=== PATIENT | female | born 1965 | race Caucasian/White ===

== ENCOUNTER 2016-12-28 07:33 | Day surgery (SDC) | payer OTHER ==
[2016-12-24 15:29] VITALS: BMI 30.9
[~2016-12-28 07:33] MED LIST: LACTATED RINGERS 1,000 ML IV SCH
[2016-12-28 07:50] VITALS: TEMP 97.3
[2016-12-28] MEDS ORDERED: LIDOCAINE 1% 20 ML VIAL (10MG/ML) FOR IV START INTRADERMA ONE (08:00)
[2016-12-28] MEDS ORDERED: MIDAZOLAM 2 MG/2 ML VIAL ONE (08:44)
[2016-12-28] MEDS ORDERED: PROPOFOL 10 MG/ML 20 ML VIAL IV ONE (08:44)
[2016-12-28] MEDS ORDERED: fentaNYL (PF) 50 MCG/ML 2 ML AMP ONE (08:44)
--- NOTE | 2016-12-28 08:52 | P.GSHP ---
History of Present Illness H&P Date: 12/28/16 Chief Complaint: Colon cancer screening Patient here today for colonoscopy. She has not had one previously. No family history of colon cancer. No bowel related complaints. Past Medical History Past Medical History: GERD/Reflux, Hypertension Additional Past Medical History / Comment(s): anemia History of Any Multi-Drug Resistant Organisms: None Reported Past Surgical History: Hysterectomy Additional Past Surgical History / Comment(s): duodinal switch for wt loss, lasik eye surgery Past Anesthesia/Blood Transfusion Reactions: Postoperative Nausea & Vomiting ( PONV) Past Psychological History: No Psychological Hx Reported Smoking Status: Never smoker Past Alcohol Use History: Occasional Past Drug Use History: None Reported - Past Family History Mother Family Medical History: No Reported History Medications and Allergies Home Medications Medication Instructions Recorded Confirmed Type Candesartan/Hydrochlorothiazid 1 each PO DAILY 12/24/16 12/28/16 History [Candesartan-Hctz 16-12.5 mg Tb] Esomeprazole Magnesium 20 mg PO QAM 12/24/16 12/28/16 History Potassium Chloride 8 meq PO TID 12/24/16 12/28/16 History Allergies Allergy/AdvReac Type Severity Reaction Status Date / Time amoxicillin [From Augmentin] Allergy throat Verified 12/28/16 07:40 swelling banana Allergy itchy Verified 12/28/16 07:40 throat clavulanic acid Allergy throat Verified 12/28/16 07:40 [From Augmentin] swelling melon Allergy itchy Verified 12/28/16 07:40 throat Penicillins Allergy throat Verified 12/28/16 07:40 swelling, SOB, and rash walnut Allergy itchy Verified 12/28/16 07:40 throat Surgical - Exam Vital Signs Temp Pulse Resp BP Pulse Ox 97.3 F L 60 18 111/73 97 12/28/16 07:46 12/28/16 07:46 12/28/16 07:46 12/28/16 07:46 12/28/16 07:46 Physical exam: General: Well-developed, well-nourished HEENT: Normocephalic, sclerae nonicteric Abdomen: Nontender, nondistended Extremities: No edema Neuro: Alert and oriented Assessment and Plan (1) Colon cancer screening Narrative/Plan: Will proceed with colonoscopy at this time. Status: Acute
--- NOTE | 2016-12-28 09:06 | P.PCN ---
Date of Procedure: 12/28/16 Procedure(s) Performed: PREOPERATIVE DIAGNOSIS: Colon cancer screening POSTOPERATIVE DIAGNOSIS: Diverticulosis, small rectal polyp PROCEDURE: Colonoscopy with biopsy ANESTHESIA: MAC SURGEON: Laci Resendez M.D. SPECIMENS: Rectal polyp ENDOSCOPIC PROCEDURE: The patient was placed on the endoscopy table in the left decubitus position. The Olympus colonoscope was inserted into the anus and passed under direct visualization to the base of the cecum. The appendiceal orifice was visualized. From that point the scope was slowly withdrawn inspecting all surfaces carefully. There were no neoplastic inflammatory or polypoid lesions throughout the cecum, ascending, transverse, descending, and sigmoid colon. In the rectum there was a small polyp that was removed using the cold biopsy forceps. There was mild diverticulosis present in the left colon. Digital rectal examination was normal. The patient was taken to the recovery room in stable condition per anesthesia guidelines. RECOMMENDATIONS: Await biopsy results to determine the timing of the next colonoscopy.
[2016-12-28 09:08] VITALS: RESP 16
[2016-12-28 09:38] VITALS: BP 99/65; PULSE 58
== END 2016-12-28 09:48 | disposition home or self-care (01) ==
LOC: ORWHC2ENDO 07:33
PROVIDERS: ATTEND Surgery
DX: Z12.11 Encounter for screening for malignant neoplasm of colon (principal); D12.8 Benign neoplasm of rectum; K57.30 Diverticulosis of large intestine without perforation or abscess without bleeding; I10 Essential (primary) hypertension; K21.9 Gastro-esophageal reflux disease without esophagitis; Z79.899 Other long term (current) drug therapy; Z91.018 Allergy to other foods; Z88.0 Allergy status to penicillin
CPT/HCPCS: 88305; 45380; J2250; J3010; J2704

== ENCOUNTER 2017-03-07 14:32 | Observation (INO) | payer OTHER ==
[2017-03-07] MEDS ORDERED: ASPIRIN 81 MG CHEW PO STA (15:39)
[2017-03-07] MEDS ORDERED: NITROGLYCERIN OINT 1 INCH/GM PACKET TOPICAL STA (15:39)
--- NOTE | 2017-03-07 15:42 | ED ---
General Adult HPI - General Chief complaint: Chest Pain Stated complaint: Chest Pain Time Seen by Provider: 03/07/17 15:10 Source: patient, RN notes reviewed Mode of arrival: wheelchair Limitations: no limitations - History of Present Illness Initial comments: Patient is a pleasant 52-year-old female presenting to the emergency Department with chest discomfort. Onset was around 11:30 and symptoms lasted a couple hours. Symptoms now resolved. Patient states discomfort did radiate towards his shoulder. was nauseated. Patient has been under increased stress regarding interview. No dyspnea. No diaphoresis. No history of similar symptoms previously. Discomfort felt like tightness. - Related Data Home Medications Medication Instructions Recorded Confirmed Candesartan/Hydrochlorothiazid 1 tab PO QAM 12/24/16 03/07/17 [Candesartan-Hctz 16-12.5 mg Tb] Esomeprazole Magnesium 20 mg PO QAM 12/24/16 03/07/17 Potassium Chloride 8 meq PO TID 12/24/16 03/07/17 Calcium Carbonate [Calcium] 600 mg PO QAM 03/07/17 03/07/17 Multivitamins, Thera [Multivitamin 1 tab PO QAM 03/07/17 03/07/17 (formulary)] Allergies Allergy/AdvReac Type Severity Reaction Status Date / Time amoxicillin [From Augmentin] Allergy throat Verified 03/07/17 15:49 swelling banana Allergy itchy Verified 03/07/17 15:49 throat clavulanic acid Allergy throat Verified 03/07/17 15:49 [From Augmentin] swelling melon Allergy itchy Verified 03/07/17 15:49 throat Penicillins Allergy throat Verified 03/07/17 15:49 swelling, SOB, and rash walnut Allergy itchy Verified 03/07/17 15:49 throat Review of Systems ROS Statement: Those systems with pertinent positive or pertinent negative responses have been documented in the HPI. ROS Other: All systems not noted in ROS Statement are negative. Constitutional: Denies: fever Eyes: Denies: eye pain ENT: Denies: ear pain Respiratory: Denies: cough, dyspnea Cardiovascular: Reports: chest pain Endocrine: Denies: fatigue Gastrointestinal: Reports: nausea. Denies: abdominal pain Genitourinary: Denies: dysuria Musculoskeletal: Denies: back pain Skin: Denies: rash Neurological: Denies: weakness Past Medical History Past Medical History: GERD/Reflux, Hypertension Additional Past Medical History / Comment(s): anemia History of Any Multi-Drug Resistant Organisms: None Reported Past Surgical History: Hysterectomy Additional Past Surgical History / Comment(s): duodinal switch for wt loss, lasik eye surgery Past Anesthesia/Blood Transfusion Reactions: Postoperative Nausea & Vomiting ( PONV) Past Psychological History: No Psychological Hx Reported Smoking Status: Never smoker Past Alcohol Use History: Occasional Past Drug Use History: None Reported - Past Family History Mother Family Medical History: No Reported History General Exam Limitations: no limitations General appearance: alert, in no apparent distress Head exam: Present: atraumatic Eye exam: Present: normal appearance, PERRL ENT exam: Present: normal oropharynx Neck exam: Present: normal inspection Respiratory exam: Present: normal lung sounds bilaterally. Absent: chest wall tenderness Cardiovascular Exam: Present: regular rate, normal rhythm Expanded Peripheral pulses: 2+: Radial (R), Radial (L), Posterior Tibialis (R), Posterior Tibialis (L) GI/Abdominal exam: Present: soft. Absent: tenderness Extremities exam: Present: normal inspection. Absent: pedal edema, calf tenderness Neurological exam: Present: alert Psychiatric exam: Present: normal affect, normal mood Skin exam: Present: normal color Course Vital Signs 03/07/17 03/07/17 14:41 16:41 Temperature 98.5 F 97.2 F L Pulse Rate 68 56 L Respiratory 18 18 Rate Blood Pressure 118/81 126/72 O2 Sat by Pulse 94 L 96 Oximetry EKG Findings - EKG Comments: EKG Findings:: Normal sinus rhythm 61. Normal intervals. Normal axis. Normal QRS. Normal ST-T. Medical Decision Making - Medical Decision Making Patient reevaluated and resting comfortably in bed. Patient and family updated on results and plan. Case was discussed with Dr. Lindsey, who will admit his patient with cardiology consult. - Lab Data Result diagrams: 03/07/17 15:53 03/07/17 15:53 Lab Results 03/07/17 03/07/17 03/07/17 Range/Units 15:53 15:53 15:53 WBC 6.9 (3.8-10.6) k/uL RBC 4.63 (3.80-5.40) m/uL Hgb 12.7 (11.4-16.0) gm/dL Hct 39.0 (34.0-46.0) % MCV 84.2 (80.0-100.0) fL MCH 27.4 (25.0-35.0) pg MCHC 32.5 (31.0-37.0) g/dL RDW 19.2 H (11.5-15.5) % Plt Count 188 (150-450) k/uL Neutrophils % 69 % Lymphocytes % 23 % Monocytes % 5 % Eosinophils % 1 % Basophils % 0 % Neutrophils # 4.8 (1.3-7.7) k/uL Lymphocytes # 1.6 (1.0-4.8) k/uL Monocytes # 0.3 (0-1.0) k/uL Eosinophils # 0.1 (0-0.7) k/uL Basophils # 0.0 (0-0.2) k/uL Hypochromasia Slight Anisocytosis Slight PT (9.0-12.0) sec INR (<1.1) APTT (22.0-30.0) sec Sodium 139 (137-145) mmol/L Potassium 3.0 L* (3.5-5.1) mmol/L Chloride 100 (98-107) mmol/L Carbon Dioxide 29 (22-30) mmol/L Anion Gap 10 mmol/L BUN 14 (7-17) mg/dL Creatinine 0.54 (0.52-1.04) mg/dL Est GFR (MDRD) Af Amer >60 (>60 ml/min/1.73 sqM) Est GFR (MDRD) Non-Af >60 (>60 ml/min/1.73 sqM) Glucose 91 (74-99) mg/dL Calcium 8.6 (8.4-10.2) mg/dL Magnesium 2.1 (1.6-2.3) mg/dL Total Bilirubin 0.6 (0.2-1.3) mg/dL AST 45 H (14-36) U/L ALT 47 (9-52) U/L Alkaline Phosphatase 95 (38-126) U/L Total Creatine Kinase 130 (30-135) U/L CK-MB (CK-2) 1.4 (0.0-2.4) ng/mL CK-MB (CK-2) Rel Index 1.1 Troponin I <0.012 (0.000-0.034) ng/mL Total Protein 7.0 (6.3-8.2) g/dL Albumin 3.8 (3.5-5.0) g/dL 03/07/17 Range/Units 15:53 WBC (3.8-10.6) k/uL RBC (3.80-5.40) m/uL Hgb (11.4-16.0) gm/dL Hct (34.0-46.0) % MCV (80.0-100.0) fL MCH (25.0-35.0) pg MCHC (31.0-37.0) g/dL RDW (11.5-15.5) % Plt Count (150-450) k/uL Neutrophils % % Lymphocytes % % Monocytes % % Eosinophils % % Basophils % % Neutrophils # (1.3-7.7) k/uL Lymphocytes # (1.0-4.8) k/uL Monocytes # (0-1.0) k/uL Eosinophils # (0-0.7) k/uL Basophils # (0-0.2) k/uL Hypochromasia Anisocytosis PT 10.5 (9.0-12.0) sec INR 1.0 (<1.1) APTT 23.3 (22.0-30.0) sec Sodium (137-145) mmol/L Potassium (3.5-5.1) mmol/L Chloride (98-107) mmol/L Carbon Dioxide (22-30) mmol/L Anion Gap mmol/L BUN (7-17) mg/dL Creatinine (0.52-1.04) mg/dL Est GFR (MDRD) Af Amer (>60 ml/min/1.73 sqM) Est GFR (MDRD) Non-Af (>60 ml/min/1.73 sqM) Glucose (74-99) mg/dL Calcium (8.4-10.2) mg/dL Magnesium (1.6-2.3) mg/dL Total Bilirubin (0.2-1.3) mg/dL AST (14-36) U/L ALT (9-52) U/L Alkaline Phosphatase (38-126) U/L Total Creatine Kinase (30-135) U/L CK-MB (CK-2) (0.0-2.4) ng/mL CK-MB (CK-2) Rel Index Troponin I (0.000-0.034) ng/mL Total Protein (6.3-8.2) g/dL Albumin (3.5-5.0) g/dL - Radiology Data Radiology results: image reviewed (Chest x-ray shows no acute process.) Critical Care Time Critical Care Time: Yes Total Critical Care Time: 32 Disposition Clinical Impression: Unstable angina pectoris Disposition: ADMITTED IP TO THIS HOSP Referrals: Marcus Lindsey MD [Primary Care Provider] - 1-2 days Decision Time: 17:47
[2017-03-07 16:06] LABS: Anisocytosis Slight; Basophils % (A) 0 %; CH 26.9; CHCM 31.9; Eosinophils # (A) 0.1 k/uL (0-0.7); Eosinophils % (A) 1 %; HDW 2.73; HGB 12.7 gm/dL (11.4-16.0); Hypochromasia Slight; Luc # (Auto) 0.11; Luc % (Auto) 2; Lymphocytes # (A) 1.6 k/uL (1.0-4.8); Lymphocytes % (A) 23 %; MCH 27.4 pg (25.0-35.0); MCHC 32.5 g/dL (31.0-37.0); MCV 84.2 fL (80.0-100.0); Mean Platelet Volume 7.7; Monocytes # (A) 0.3 k/uL (0-1.0); Monocytes % (A) 5 %; Neutrophils # (A) 4.8 k/uL (1.3-7.7); Neutrophils % (A) 69 %; RBC 4.63 m/uL (3.80-5.40); RDW 19.2 % (11.5-15.5); WBC 6.9 k/uL (3.8-10.6)
[2017-03-07 16:14] LABS: Partial Thromboplastin Time 23.3 sec (22.0-30.0); Prothrombin Time 10.5 sec (9.0-12.0)
[2017-03-07 16:21] LABS: ALT 47 U/L (9-52); AST 45 U/L (14-36); Alkaline Phosphatase 95 U/L (38-126); Anion Gap 10 mmol/L; Blood Urea Nitrogen 14 mg/dL (7-17); Calcium 8.6 mg/dL (8.4-10.2); Carbon Dioxide 29 mmol/L (22-30); Chloride 100 mmol/L (98-107); Glucose 91 mg/dL (74-99); Magnesium 2.1 mg/dL (1.6-2.3); Non-African American GFR(MDRD) >60 (>60 ml/min/1.73 sqM); Sodium 139 mmol/L (137-145); Total Bilirubin 0.6 mg/dL (0.2-1.3)
[2017-03-07 16:25] LABS: Creatine Kinase 130 U/L (30-135)
[2017-03-07] MEDS ORDERED: POTASSIUM CHLORIDE ER 20 MEQ TAB.ER PO STA (16:28)
[2017-03-07 16:36] LABS: Creatine Kinase MB 1.4 ng/mL (0.0-2.4); Troponin I <0.012 ng/mL (0.000-0.034)
--- NOTE | 2017-03-07 16:45 | XR ---
EXAMINATION TYPE: XR chest 2V DATE OF EXAM: 03/07/2017 COMPARISON: None HISTORY: 52-year-old female with chest pain TECHNIQUE: PA and lateral views FINDINGS: The cardiomediastinal silhouette, aorta, and pulmonary vasculature are within normal limits. Mild dif fuse interstitial prominence has a chronic appearance. There is some peribronchial cuffing which coul d represent chronic bronchitis/asthma. No consolidation or pleural effusion. Surgical clips at the GE junction and upper abdomen. A 6 mm calcific focus at the left greater trochanter can be seen in the setting of calcific tendinitis. Clinically correlate. IMPRESSION: Chronic-appearing changes, possible chronic bronchitis/asthma. No acute process seen.
[2017-03-07] MEDS ORDERED: NITROGLYCERIN SL TABS 0.4 MG TAB SUBLINGUAL PRN (17:47)
[2017-03-07] MEDS ORDERED: HEPARIN SODIUM,PORCINE 5,000 UNIT/ML 1 ML VIAL IV PRN (17:47)
[2017-03-07] MEDS ORDERED: HEPARIN SODIUM,PORCINE 5,000 UNIT/ML 1 ML VIAL IV ONE (17:47)
[2017-03-07] MEDS ORDERED: HEPARIN SODIUM,PORCINE/D5W PMX 25,000 UNIT in DEXTROSE/WATER 1 500ML.BAG IV SCH (18:00)
[2017-03-07] MEDS: NITROGLYCERIN OINT 1 INCH/GM PACKET TOPICAL SCH (19:42)
[2017-03-07] MEDS ORDERED: ACETAMINOPHEN TAB 325 MG TAB PO PRN (19:45)
[2017-03-07 23:50] LABS: Creatine Kinase 120 U/L (30-135)
[2017-03-08 00:03] LABS: Creatine Kinase MB 1.5 ng/mL (0.0-2.4); Troponin I <0.012 ng/mL (0.000-0.034)
[2017-03-08] MEDS: NITROGLYCERIN OINT 1 INCH/GM PACKET TOPICAL SCH ×3 (00:52→11:40)
[2017-03-08 05:15] LABS: Mean Platelet Volume 7.7
[2017-03-08 05:42] LABS: Creatine Kinase 104 U/L (30-135)
[2017-03-08 05:53] LABS: Creatine Kinase MB 1.2 ng/mL (0.0-2.4); Troponin I <0.012 ng/mL (0.000-0.034)
[2017-03-08 06:38] LABS: Cholesterol 119 mg/dL (<200); HDL Cholesterol 61 mg/dL (40-60); Triglycerides 48 mg/dL (<150)
[2017-03-08] MEDS ORDERED: REGADENOSON 0.4 MG/5 ML SYRINGE IV ONE (07:56)
[2017-03-08] MEDS ORDERED: AMINOPHYLLINE 500 MG/20 ML VIAL IV PRN (07:56)
--- NOTE | 2017-03-08 08:00 | P.HPIM ---
History of Present Illness H&P Date: 03/08/17 Chief Complaint: Chest pain. 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 The patient states significant stress and has had lack of sleep because of the interview process. She states she was admitted through the interview but was having significant chest pain coming home. No nausea but there was some apprehension as far as the intensity of the pain. It was not relieved by any type of other medication or activity. And because of this issue, she was appropriately evaluated in the emergency room for rule out myocardial infarction. She states she has difficulty running given her lack of shoes. We will go ahead and order nuclear medicine stress test today for appropriate evaluation. Review of Systems Constitutional: Denies chills, Denies fever Ears, nose, mouth and throat: Denies headache, Denies sore throat Cardiovascular: Reports chest pain Respiratory: Denies cough Gastrointestinal: Denies abdominal pain, Denies diarrhea, Denies nausea, Denies vomiting Genitourinary: Denies dysuria, Denies hematuria Musculoskeletal: Denies myalgias Integumentary: Denies pruritus, Denies rash Past Medical History Past Medical History: GERD/Reflux, Hypertension Additional Past Medical History / Comment(s): anemia History of Any Multi-Drug Resistant Organisms: None Reported Past Surgical History: Hysterectomy Additional Past Surgical History / Comment(s): duodenall switch for wt loss, lasik eye surgery, dental sx-5 implants, lt elbow sx d/t dislocation, colonoscopy. Past Anesthesia/Blood Transfusion Reactions: Postoperative Nausea & Vomiting ( PONV) Smoking Status: Never smoker - Past Family History Mother Family Medical History: Liver Disease Additional Family Medical History / Comment(s): alcoholic cirrhosis, smoker Father Family Medical History: Coronary Artery Disease (CAD) Additional Family Medical History / Comment(s): stents. Medications and Allergies Home Medications Medication Instructions Recorded Confirmed Type Candesartan/Hydrochlorothiazid 1 tab PO QAM 12/24/16 03/07/17 History [Candesartan-Hctz 16-12.5 mg Tb] Esomeprazole Magnesium 20 mg PO QAM 12/24/16 03/07/17 History Potassium Chloride 8 meq PO TID 12/24/16 03/07/17 History Calcium Carbonate [Calcium] 600 mg PO QAM 03/07/17 03/07/17 History Multivitamins, Thera [Multivitamin 1 tab PO QAM 03/07/17 03/07/17 History (formulary)] Allergies Allergy/AdvReac Type Severity Reaction Status Date / Time amoxicillin [From Augmentin] Allergy throat Verified 03/07/17 21:45 swelling banana Allergy itchy Verified 03/07/17 21:45 throat clavulanic acid Allergy throat Verified 03/07/17 21:45 [From Augmentin] swelling melon Allergy itchy Verified 03/07/17 21:45 throat Penicillins Allergy throat Verified 03/07/17 21:45 swelling, SOB, and rash walnut Allergy itchy Verified 03/07/17 21:45 throat Physical Exam Vitals: Vital Signs Temp Pulse Pulse Resp BP BP Pulse Ox 03/08/17 03:59 56 L 14 03/08/17 03:49 97.6 F 60 14 119/68 94 L 03/08/17 00:00 62 16 03/07/17 23:54 97.2 F L 63 14 110/66 95 03/07/17 19:52 70 16 03/07/17 18:53 97.8 F 51 L 14 118/78 99 03/07/17 16:41 97.2 F L 56 L 18 126/72 96 03/07/17 14:41 98.5 F 68 18 118/81 94 L Intake and Output 03/07/17 03/08/17 03/08/17 22:59 06:59 14:59 Intake Total 560 574.667 Balance 560 574.667 Intake: IV 80 360 0.9 NS @ KVO 80 160 Heparin Sodium,Porcine/ 200 D5w Pmx 25,000 unit In Dextrose/Water 1 500ml. bag @ 11.191 UNITS/KG/HR 20 mls/hr IV .Q24H [facility] Rx #:[id number] Intake, IV Titration 80 114.667 Amount Heparin Sodium,Porcine/ 80 114.667 D5w Pmx 25,000 unit In Dextrose/Water 1 500ml. bag @ 11.191 UNITS/KG/HR 20 mls/hr IV .Q24H [facility] Rx #:[id number] Oral 400 100 Other: Voiding Method Toilet Toilet # Voids 2 2 Weight 89.358 kg - Constitutional General appearance: no acute distress - EENT Eyes: EOMI - Neck Neck: no lymphadenopathy - Respiratory Respiratory: bilateral: CTA - Cardiovascular Rhythm: regular - Gastrointestinal General gastrointestinal: soft - Neurologic Neurologic: CNII-XII intact Results CBC & Chem 7: 03/08/17 04:59 03/07/17 15:53 Labs: Abnormal Lab Results - Last 24 Hours (Table) 03/07/17 03/07/17 03/07/17 Range/Units 15:53 15:53 23:08 RDW 19.2 H (11.5-15.5) % Plt Count (150-450) k/uL APTT 38.0 H (22.0-30.0) sec Potassium 3.0 L* (3.5-5.1) mmol/L AST 45 H (14-36) U/L HDL Cholesterol (40-60) mg/dL 03/08/17 03/08/17 03/08/17 Range/Units 04:59 04:59 04:59 RDW (11.5-15.5) % Plt Count 146 L (150-450) k/uL APTT 70.4 H (22.0-30.0) sec Potassium (3.5-5.1) mmol/L AST (14-36) U/L HDL Cholesterol 61 H (40-60) mg/dL Thrombosis Risk Factor Assmnt - Choose All That Apply Any of the Below Risk Factors Present?: Yes Each Factor Represents 1 point: Age 41-60 years, Obesity (BMI >25) Other Risk Factors: No Other congenital or acquired thrombophilia - If yes, enter type in comment: No Thrombosis Risk Factor Assessment Total Risk Factor Score: 2 Thrombosis Risk Factor Assessment Level: Low Risk Assessment and Plan (1) Unstable angina pectoris Status: Acute Plan: Myocardial infraction has been ruled out. Anginal equivalent pain with significant stress. Order nuclear medicine Lexiscan today. Otherwise, anticipate discharge if stable. Time with Patient: Greater than 30
[2017-03-08 08:03] VITALS: PULSE 62; RESP 16; TEMP 98
[2017-03-08 08:18] LABS: Anion Gap 9 mmol/L; Blood Urea Nitrogen 12 mg/dL (7-17); Calcium 8.6 mg/dL (8.4-10.2); Carbon Dioxide 27 mmol/L (22-30); Chloride 106 mmol/L (98-107); Glucose 92 mg/dL (74-99); Non-African American GFR(MDRD) >60 (>60 ml/min/1.73 sqM); Potassium 3.5 mmol/L (3.5-5.1); Sodium 142 mmol/L (137-145)
[2017-03-08] MEDS ORDERED: Potassium Replacement Protocol 1 EACH MISC MISCELLANE PRN (08:35)
[2017-03-08] MEDS ORDERED: ASPIRIN 325 MG TAB PO SCH (09:00)
--- NOTE | 2017-03-08 10:48 | P.CRDCN ---
History of Present Illness Reason for Consult (text): Chest pain History of present illness: This patient is admitted to the emergency room with chest discomfort. Patient had a job interview yesterday and it was see wasn't a lot of stress did not get any in the sleep night before. This and subsequently started having dull aching chest discomfort in the left anterior part of the chest pain did not radiate to the arm neck or jaw patient was lid with sick to the stomach but no shortness of breath or sweating the chest discomfort persisted initially patient was seen in the medicine urgent clinic EKG was normal and the patient was advised to come to the emergency room here by the time she came here her pain had resolved. She denies any exertional chest discomfort she has a history of borderline hypertension that is no history of diabetes. No family history of coronary artery disease. And patient does not smoke. Past Medical History Past Medical History: GERD/Reflux, Hypertension Additional Past Medical History / Comment(s): anemia History of Any Multi-Drug Resistant Organisms: None Reported Past Surgical History: Hysterectomy Additional Past Surgical History / Comment(s): duodenall switch for wt loss, lasik eye surgery, dental sx-5 implants, lt elbow sx d/t dislocation, colonoscopy. Past Anesthesia/Blood Transfusion Reactions: Postoperative Nausea & Vomiting ( PONV) Smoking Status: Never smoker - Past Family History Mother Family Medical History: Liver Disease Additional Family Medical History / Comment(s): alcoholic cirrhosis, smoker Father Family Medical History: Coronary Artery Disease (CAD) Additional Family Medical History / Comment(s): stents. Medications and Allergies Home Medications Medication Instructions Recorded Confirmed Type Candesartan/Hydrochlorothiazid 1 tab PO QAM 12/24/16 03/07/17 History [Candesartan-Hctz 16-12.5 mg Tb] Esomeprazole Magnesium 20 mg PO QAM 12/24/16 03/07/17 History Potassium Chloride 8 meq PO TID 12/24/16 03/07/17 History Calcium Carbonate [Calcium] 600 mg PO QAM 03/07/17 03/07/17 History Multivitamins, Thera [Multivitamin 1 tab PO QAM 03/07/17 03/07/17 History (formulary)] Allergies Allergy/AdvReac Type Severity Reaction Status Date / Time amoxicillin [From Augmentin] Allergy throat Verified 03/07/17 21:45 swelling banana Allergy itchy Verified 03/07/17 21:45 throat clavulanic acid Allergy throat Verified 03/07/17 21:45 [From Augmentin] swelling melon Allergy itchy Verified 03/07/17 21:45 throat Penicillins Allergy throat Verified 03/07/17 21:45 swelling, SOB, and rash walnut Allergy itchy Verified 03/07/17 21:45 throat Physical Exam Vitals: Vital Signs Temp Pulse Pulse Resp BP BP Pulse Ox 03/08/17 08:00 98.0 F 62 16 100/71 96 03/08/17 03:59 56 L 14 03/08/17 03:49 97.6 F 60 14 119/68 94 L 03/08/17 00:00 62 16 03/07/17 23:54 97.2 F L 63 14 110/66 95 03/07/17 19:52 70 16 03/07/17 18:53 97.8 F 51 L 14 118/78 99 03/07/17 16:41 97.2 F L 56 L 18 126/72 96 03/07/17 14:41 98.5 F 68 18 118/81 94 L Intake and Output 03/07/17 03/08/17 03/08/17 22:59 06:59 14:59 Intake Total 560 574.667 Balance 560 574.667 Intake: IV 80 360 0.9 NS @ KVO 80 160 Heparin Sodium,Porcine/ 200 D5w Pmx 25,000 unit In Dextrose/Water 1 500ml. bag @ 11.191 UNITS/KG/HR 20 mls/hr IV .Q24H [facility] Rx #:[id number] Intake, IV Titration 80 114.667 Amount Heparin Sodium,Porcine/ 80 114.667 D5w Pmx 25,000 unit In Dextrose/Water 1 500ml. bag @ 11.191 UNITS/KG/HR 20 mls/hr IV .Q24H [facility] Rx #:[id number] Oral 400 100 Other: Voiding Method Toilet Toilet Toilet # Voids 2 2 Weight 89.358 kg Patient is comfortable. Vital signs are reviewed. HEENT. Negative. . Supple that is no increase in jugular venous pressure. Both the carotid pulses are felt that is no bruit. Chest. Symmetrical. Heart. First and second heart sounds are normal. Lungs are clinically clear to auscultation and percussion. Abdomen is soft liver and spleen are not enlarged. Extremities peripheral pulses since are 2+. EKG shows normal sinus rhythm without any acute ischemic changes. Cardiac enzymes are normal. Results 03/08/17 04:59 03/08/17 04:59 Cardiac Enzymes 03/07/17 03/07/17 03/07/17 Range/Units 15:53 15:53 23:08 AST 45 H (14-36) U/L CK-MB (CK-2) 1.4 1.5 (0.0-2.4) ng/mL Troponin I <0.012 <0.012 (0.000-0.034) ng/mL 03/08/17 Range/Units 04:59 AST (14-36) U/L CK-MB (CK-2) 1.2 (0.0-2.4) ng/mL Troponin I <0.012 (0.000-0.034) ng/mL Coagulation 03/07/17 03/07/17 03/08/17 Range/Units 15:53 23:08 04:59 PT 10.5 (9.0-12.0) sec APTT 23.3 38.0 H 70.4 H (22.0-30.0) sec Lipids 03/08/17 Range/Units 04:59 Triglycerides 48 (<150) mg/dL Cholesterol 119 (<200) mg/dL HDL Cholesterol 61 H (40-60) mg/dL CBC 03/07/17 03/08/17 Range/Units 15:53 04:59 WBC 6.9 (3.8-10.6) k/uL RBC 4.63 (3.80-5.40) m/uL Hgb 12.7 (11.4-16.0) gm/dL Hct 39.0 (34.0-46.0) % Plt Count 188 146 L (150-450) k/uL Comprehensive Metabolic Panel 03/07/17 03/08/17 Range/Units 15:53 04:59 Sodium 139 142 (137-145) mmol/L Potassium 3.0 L* 3.5 (3.5-5.1) mmol/L Chloride 100 106 (98-107) mmol/L Carbon Dioxide 29 27 (22-30) mmol/L BUN 14 12 (7-17) mg/dL Creatinine 0.54 0.55 (0.52-1.04) mg/dL Glucose 91 92 (74-99) mg/dL Calcium 8.6 8.6 (8.4-10.2) mg/dL AST 45 H (14-36) U/L ALT 47 (9-52) U/L Alkaline Phosphatase 95 (38-126) U/L Total Protein 7.0 (6.3-8.2) g/dL Albumin 3.8 (3.5-5.0) g/dL Current Medications Generic Name Dose Route Start Last Admin Trade Name Freq PRN Reason Stop Dose Admin Acetaminophen 650 mg 03/07/17 19:45 03/07/17 19:57 Tylenol Tab PO 650 mg Q6HR PRN Administration Fever and/ or Pain Aminophylline 100 mg 03/08/17 07:56 Aminophylline IV 03/09/17 07:57 ONCE PRN Patient Response Aspirin 325 mg 03/08/17 09:00 Aspirin PO DAILY [facility] Heparin Sodium/Dextrose 25,000 500 mls @ 20 mls/hr 03/07/17 18:00 03/07/17 23 :52 unit/ IV Solution IV 14.191 units/kg/hr .Q24H [facility] 25.36 mls/hr Protocol Titration 11.191 UNITS/KG/HR Miscellaneous Information 1 each 03/08/17 08:35 Potassium Per Protocol MISCELLANE DAILY PRN Per Protocol Protocol Nitroglycerin 1 inch 03/07/17 19:00 03/08/17 05:53 Nitro-Bid Oint TOPICAL Not Given Q6HR [facility] Nitroglycerin 0.4 mg 03/07/17 17:47 Nitrostat SUBLINGUAL Q5M PRN Chest Pain Intake and Output 03/07/17 03/08/17 03/08/17 22:59 06:59 14:59 Intake Total 560 574.667 Balance 560 574.667 Intake: IV 80 360 0.9 NS @ KVO 80 160 Heparin Sodium,Porcine/ 200 D5w Pmx 25,000 unit In Dextrose/Water 1 500ml. bag @ 11.191 UNITS/KG/HR 20 mls/hr IV .Q24H [facility] Rx #:[id number] Intake, IV Titration 80 114.667 Amount Heparin Sodium,Porcine/ 80 114.667 D5w Pmx 25,000 unit In Dextrose/Water 1 500ml. bag @ 11.191 UNITS/KG/HR 20 mls/hr IV .Q24H [facility] Rx #:[id number] Oral 400 100 Other: Voiding Method Toilet Toilet Toilet # Voids 2 2 Weight 89.358 kg 03/08/17 04:59 03/08/17 04:59 EKG Interpretations (text) EKG shows normal sinus rhythm without any acute ischemic changes. Assessment and Plan Plan: This present chest pains are suggestive of atypical anginal pain. EKGs and cardiac enzymes are normal. Since lipid profile is normal. And would be evaluated with a stress echocardiographic study. The stress test is normal patient can be discharged home.
[2017-03-08 12:03] VITALS: BP 134/83
--- NOTE | 2017-03-08 17:32 | ECHOF ---
Referral Reason:chest pain MEASUREMENTS -------- HEIGHT: 162.6 cm WEIGHT: 89.4 kg BP: IVSd: 1.2 cm (0.6 - 1.1) LVIDd: 4.0 cm (3.9 - 5.3) LVPWd: 1.2 cm (0.6 - 1.1) IVSs: 1.6 cm LVIDs: 2.6 cm LVPWs: 1.4 cm Ao Diam: 3.1 cm (2.0 - 3.7) AV Cusp: 2.0 cm (1.5 - 2.6) LA Diam: 3.5 cm (2.7 - 3.8) MV EXCURSION: 14.924 mm (> 18.000) MV EF SLOPE: 115 mm/s (70 - 150) EPSS: 0.4 cm MV E Suresh: 0.92 m/s MV DecT: 282 ms MV A Suresh: 0.71 m/s MV E/A Ratio: 1.31 RAP: 15.00 mmHg RVSP: 29.87 mmHg FINDINGS -------- Sinus rhythm. This was a technically good study. There is mild concentric left ventricular hypertrophy. Overall left ventricular systolic function is low-normal with, an EF between 50 - 55 %. The right ventricle is normal in size and function. The left atrium is normal in size. The right atrium is normal in size. Aortic valve is trileaflet and is mildly thickened. The mitral valve leaflets are mildly thickened. Mild mitral regurgitation is present. Mild tricuspid regurgitation present. The right ventricular systolic pressure, as measured by Doppler, is 29.87mmHg. Pulmonic valve appears structurally normal. The aortic root size is normal. The pericardium is normal. CONCLUSIONS -------- 1. Sinus rhythm. 2. Mild mitral regurgitation is present. 3. Mild tricuspid regurgitation present. 4. The right ventricular systolic pressure, as measured by Doppler, is 29.87mmHg. 5. Pulmonic valve appears structurally normal. 6. The aortic root size is normal. 7. The pericardium is normal. 8. This was a technically good study. 9. There is mild concentric left ventricular hypertrophy. 10. Overall left ventricular systolic function is low-normal with, an EF between 50 - 55 %. 11. The right ventricle is normal in size and function. 12. The left atrium is normal in size. 13. The right atrium is normal in size. 14. Aortic valve is trileaflet and is mildly thickened. 15. The mitral valve leaflets are mildly thickened. [employer]: Sandhya Robledo RDCS
--- NOTE | 2017-03-08 17:47 | P.STRESS ---
- Stress Test Note Stress Test Results/Findings: Exam Performed: stress echo exercise Exam Date: 03/08/17 Height: 5 ft 4 in Weight: 89.358 kg Protocol: KYRA Stage: 3 Duration of Exercise: 7:15 Resting Heart Rate: 64 Resting Blood Pressure: 115/59 Maximum Achieved Heart Rate: 134 Maximum Achieved Blood Pressure: 179/82 85% PMHR: 141 100% PMHR: 166 METS: 8.7 Technologist Comment: Stress Test Results/Findings: Baseline EKG shows sinus rhythm normal lites normal intervals. Patient exercised on Kyra protocol for a total of 7 minutes achieving 8 METs 81% of predicted maximal heart rate without chest pain there was worsening of the baseline ST-T wave changes noted occasional PVCs are noted Baseline images show normal left ventricular size wall motion systolic function Post exercise there is normal hyperdynamic response of all segments of myocardium noted Conclusions Inconclusive stress echo due to name related to attain target heart rate at 81% of predicted maximal heart rate EKG is inconclusive echo did not show wall motion abnormalities .
== END 2017-03-08 14:30 | disposition home or self-care (01) ==
LOC: EC 14:32 → 3OBS 17:47
PROVIDERS: ADMIT Family Medicine; ATTEND Family Medicine
DX: I20.0 Unstable angina (principal); R07.89 Other chest pain; Z79.899 Other long term (current) drug therapy; Z91.018 Allergy to other foods; Z88.0 Allergy status to penicillin; I10 Essential (primary) hypertension; K21.0 Gastro-esophageal reflux disease with esophagitis; Z82.49 Family history of ischemic heart disease and other diseases of the circulatory system
CPT/HCPCS: 96365; 96366 ×2; 96376 ×2; 99291; 36415; 93005; 93017; 93306; 93350; 80061; 80053; 80048; 82550 ×2; 82553 ×2; 83735; 84484 ×2; 85025; 85049; 85610; 85730 ×2; 71020; G0378 ×2; J1644 ×2